=== PATIENT | male | born 1955 | race Caucasian/White ===

== ENCOUNTER 2018-04-14 11:03 | Inpatient (IN) | payer OTHER ==
[2018-04-14] VITALS (36 sets, daily range): BP systolic 117–176; BP diastolic 48–88
[~2018-04-14] VITALS: Ht 190.5 cm; Wt 84.0 kg
--- NOTE | 2018-04-14 11:05 | NUR ---
ARRIVAL PATIENT ARRIVED VIA POV WITH COMPLAINTS OF NAUEA, VOMITING AND WEAKNESS SINCE FRIDAY PATIENT REPORTS HISTORY OF KNOWN DIABETES BUT "DOES NOT CHECK HIS BLOOD SUGAR OR MEDICATION" BED SIDE GLUCOSE 535 20 GAUGE TO RIGHT AC 1L LR BOLUS INITIATED
[2018-04-14] MEDS ORDERED: LACTATED RINGERS 1,000 ML IV STA (11:30)
[2018-04-14] MEDS ORDERED: ZOFRAN IV STA (11:30)
[2018-04-14] MEDS ORDERED: LACTATED RINGERS 1,000 ML ONE (11:34)
[2018-04-14] MEDS ORDERED: ZOFRAN ONE (11:34)
--- NOTE | 2018-04-14 11:39 | PCM.EKG ---
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
[2018-04-14 11:46] LABS: ABG PCO2 11.4 mmHg (35.0-45.0); ABG PH 7.203 (7.350-7.450); BE(B) -20.1 mmol/L (-2.0-2.0); HCO3act 4.4 mmol/L (22.0-26.0); pO2 128.1 mmHg (75.0-100.0)
[2018-04-14 11:55] LABS: BASOPHIL % 0.2 % (0.0-0.2); HEMOGLOBIN 17.9 g/dL (13.9-16.3); LYMPHOCYTES # 2.4 10^3/uL (1.0-4.8); LYMPHOCYTES % 12.8 % (24.0-44.0); MEAN CELL HGB 30.4 pg (26-34); MEAN CELL HGB CONCENTRATION 35.7 g/dL (33-37); MEAN CORP VOLUME 85.1 fL (78-100); MEAN PLATELET VOLUME 10.3 fL (7.8-11.0); MONOCYTES # 1.7 10^3/uL (0.3-0.8); NEUTROPHIL # 14.5 10^3/uL (1.8-7.7); NEUTROPHILS % 76.9 % (41.0-85.0); RED CELL DISTRIBUTION WIDTH 12.4 % (11.5-14.5); WHITE BLOOD CELL 18.9 10^3/uL (4.5-11.0)
[2018-04-14] MEDS ORDERED: NS 1000ML 1,000 ML IV STA (11:55)
[2018-04-14] MEDS ORDERED: MORPHINE SULFATE ONE (12:05)
[2018-04-14 12:10] LABS: CALCIUM 7.9 mg/dL (8.4-10.5); CARBON DIOXIDE 7.4 mmol/L (20.0-32)
[2018-04-14] MEDS ORDERED: MORPHINE SULFATE IV STA (12:10)
[2018-04-14] MEDS ORDERED: HUMALOG MIX 75-25 VIAL SQ ONE (12:24)
[2018-04-14] MEDS ORDERED: KCL 20MEQ/100ML 100 ML IV ONE (12:26)
[2018-04-14] MEDS ORDERED: KCL 20MEQ/100ML 100 ML IV STA (12:27)
--- NOTE | 2018-04-14 12:32 | NUR ---
BLOOD GLUCOSE PT BLOOD GLUCOSE AT THIS TIME 588MG/DL. EDP NOTIFIED.
--- NOTE | 2018-04-14 12:45 | ER.PDOC ---
General Chief Complaint: Nausea,Vomiting,Diarrhea Stated Complaint: NAUSEA,VOMITING,WEAKNESS Time seen by MD: 12:41 Source: patient Exam Limitations: no limitations History of Present Illness Initial Comments Nausea/vomiting and abdominal pain for 6 days. Patient is a diabetic not taking his medication. Severity/Quality: moderate Abdominal Pain Onset Location: Generalized Abdomen Associated Symptoms (vomiting): freq vomitng Allergies: Coded Allergies: Penicillins (Verified Allergy, Mild, rash, 04/14/18) Vital Signs First Vital Signs Date Time Temp Pulse Resp B/P (MAP) Pulse Ox O2 Delivery O2 Flow Rate FiO2 04/14/18 11:28 97.8 96 18 97.8 04/14/18 11:28 98 Room Air 04/14/18 11:33 166/84 (111) Last Vital Signs Date Time Temp Pulse Resp B/P (MAP) Pulse Ox O2 Delivery O2 Flow Rate FiO2 04/14/18 11:33 97.8 96 18 166/84 (111) 98 Room Air 97.8 Past Medical History Medical History: diabetes Surgical History: no surgical history Social History Smoking: non-smoker Drug Use: none Constitutional: no symptoms reported EENTM: no symptoms reported Respiratory: no symptoms reported Cardiovascular: no symptoms reported Gastrointestinal: see HPI Genitourinary: no symptoms reported All Other Systems: Reviewed and Negative Physical Exam General Appearance: No Apparent Distress, WD/WN HEENT: PERRL/EOMI, Normal ENT Inspection, TMs Normal, Pharynx Normal Neck: Non-Tender, Full Range of Motion, Supple, Normal Inspection Respiratory: chest non-tender, lungs clear, normal breath sounds, no respiratory distress, no accessory muscle use Cardiovascular: Normal Peripheral Pulses, Regular Rate, Rhythm, No Edema, No Gallop, No JVD, No Murmur Gastrointestinal: Normal Bowel Sounds, No Organomegaly, Guarding, Tenderness ( generalized) Back: Normal Inspection, No CVA Tenderness, No Vertebral Tenderness Extremities: Normal Range of Motion, Non-Tender, Normal Inspection, No Pedal Edema, No Calf Tenderness, Normal Capillary Refill, Pelvis Stable 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 as 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, No Motor/Sensory Deficits, Alert, Normal Mood/Affect, Oriented x 3 Skin: Normal Color, Warm/Dry Results/Orders Results/Orders Laboratory Tests Test 04/14/18 11:35 04/14/18 11:48 Blood Gas Sample Site LEFT BRACHIAL ARTRY Blood Gas pH 7.203 (7.350-7.450) Blood Gas PCO2 11.4 mmHg (35.0-45.0) Blood Gas PO2 128.1 mmHg (75.0-100.0) Blood Gas HCO3 4.4 mmol/L (22.0-26.0) Blood Gas Base Excess -20.1 mmol/L (-2.0-2.0) Semaj Test N/A Arterial Blood Oxygen Saturation 97.9 % (95-) Deoxyhemoglobin 2.1 % (0.2-0.6) Carboxyhemoglobin 0.3 % (0.5-1.5) Methemoglobin 1.0 % (0.2-0.6) Total Hemoglobin 18.8 % (13.5-17.5) Total Oxygen Concentration 25.6 % (13.5-17.5) Lactic Acid (Blood Gas) 3.2 MMOL/L (0.5-1.0) Blood Gas Temperature 37 Oxygen Delivery Method (LAB) RA FiO2 21 % (20-101) Bicarbonate 4.7 mmol/L (23-27) White Blood Count 18.9 10^3/uL (4.5-11.0) Red Blood Count 5.89 10^6/uL (4.50-5.90) Hemoglobin 17.9 g/dL (13.9-16.3) Hematocrit 50.1 % (37.0-53.0) Mean Corpuscular Volume 85.1 fL (78-100) Mean Corpuscular Hemoglobin 30.4 pg (26-34) Mean Corpuscular Hemoglobin Concent 35.7 g/dL (33-37) Red Cell Distribution Width 12.4 % (11.5-14.5) Platelet Count 262 10^3/uL (150-400) Mean Platelet Volume 10.3 fL (7.8-11.0) Neutrophils (%) (Auto) 76.9 % (41.0-85.0) Lymphocytes (%) (Auto) 12.8 % (24.0-44.0) Monocytes (%) (Auto) 9.0 % (5.0-12.0) Neutrophils # (Auto) 14.5 10^3/uL (1.8-7.7) Lymphocytes # (Auto) 2.4 10^3/uL (1.0-4.8) Monocytes # (Auto) 1.7 10^3/uL (0.3-0.8) Absolute Immature Granulocyte (auto 0.20 10^3 u/L (0-2) Eosinophils % 0.0 % (0.0-5.0) Basophils % 0.2 % (0.0-0.2) Basophils # 0.0 10^3/uL (0.0-0.1) Eosinophil Count 0.0 10^3/uL (0.0-0.2) Prothrombin Time 12.1 SEC (9.8-11.9) Prothrombin Time INR (Non-Therap) 1.2 Activated Partial Thromboplast Time 25.6 SEC (24.67-30.72) Sodium Level 123 mmol/L (132-145) Potassium Level 3.2 mmol/L (3.6-5.2) Chloride Level 82.0 mmol/L (96-109) Carbon Dioxide Level 7.4 mmol/L (20.0-32) Anion Gap 36.8 Blood Urea Nitrogen 60 mg/dL (7-18) Creatinine 1.87 mg/dL (0.59-1.40) Estimated GFR () 44.5 (>/=60) BUN/Creatinine Ratio 32.0 Glucose Level 540 mg/dL (70-110) Calcium Level 7.9 mg/dL (8.4-10.5) Total Bilirubin 1.4 mg/dL (0.2-1.0) Aspartate Amino Transf (AST/SGOT) 14 U/L (0-35) Alanine Aminotransferase (ALT/SGPT) 29 U/L (12-78) Alkaline Phosphatase 117 U/L (50-136) Total Protein 7.1 g/dL (6.4-8.2) Albumin 3.4 g/dL (3.4-5.0) Globulin 3.7 Lipase 148 U/L (114-286) Percent Immature Gran (Cell Imm) 1.10 % (0.00-0.50) Helicobacter pylori Screen NEGATIVE (NEGATIVE) Administered Medications Medications (Trade) Dose Ordered Sig/Vitaly Route PRN Reason Start Time Stop Time Status Last Admin Dose Admin Ondansetron HCl (Zofran) 4 mg STAT STAT IV 04/14/18 11:30 04/14/18 11:33 DC 04/14/18 12:10 Morphine Sulfate (Morphine Sulfate) 4 mg STAT STAT IV 04/14/18 12:10 04/14/18 12:11 DC 04/14/18 13:21 Potassium Chloride 100 ml @ 50 mls/hr STAT STAT IV 04/14/18 12:27 04/14/18 14:26 UNV 04/14/18 13:21 EKG/XRAY/CT/US CT Comments: Nothing acute on CT abdomen/pelvis, chronic pancreatitis Departure Time of Disposition: 13:35 Disposition: 01 HOME, SELF-CARE Impression: Primary Impression: DKA (diabetic ketoacidoses) Qualified Codes: E13.10 - Other specified diabetes mellitus with ketoacidosis without coma Condition: Stable Referrals: PCP,UNKNOWN (PCP) PRIMARY CARE PROVIDER Comments Admitted to Dr. Vanegas Duration or Time Spent with Pa: 90 mins Critical Care Note Total Time (mins): 90 SALEEM WEST MD Apr 14, 2018 12:45
--- NOTE | 2018-04-14 12:49 | DIREP ---
PROCEDURE:CT ABDOMEN/PELVIS W/O CONTRAST COMPARISON:None. INDICATIONS:Abdominal pain TECHNIQUE: Axial images were obtained through the abdomen and pelvis without the administration of IV contrast. Oral contrast was not administered. The examination is supplemented with sagittal and coronal reconstructions. FINDINGS: LOWER CHEST: The lung bases appear clear of focal consolidation. No evidence of pleural effusion. LIVER: A focal lesion is not detected. BILIARY: No visible dilatation or calcification. PANCREAS: No focal lesion. Atrophy. Dystrophic calcifications. SPLEEN: No enlargement. No focal lesion. KIDNEYS: No mass. No calcification. No obstruction. ADRENALS: No mass or enlargement. AORTA/VASCULAR: No aneurysm or dissection. RETROPERITONEUM: No mass or adenopathy. BOWEL/MESENTERY: Limitations due to unopacified bowel. The wall of the duodenum and proximal jejunum is thickened. Stomach is distended. Associated mesenteric inflammatory changes. There is no free air or free fluid. ABDOMINAL WALL: No mass or hernia. PELVIS: No visible mass. No adenopathy. No visible focal bladder wall thickening or intraluminal calculus. BONES: No bony lesion or acute fracture. Degenerative disc changes. OTHER: Negative. CONCLUSION: 1. Chronic pancreatitis changes. 2. The wall of the duodenum and proximal jejunum is thickened. Stomach is distended. Associated mesenteric inflammatory changes. Dictated by: Zhang Lyon M.D. On 04/14/2018 at 12:40 PM
--- NOTE | 2018-04-14 13:05 | NUR ---
LYSSA ROBLES MBA CALLED DR OMALLEY AT THIS TIME. NO ANSWER. MESSAGE LEFT FOR DR OMALLEY TO RETURN CALL.
--- NOTE | 2018-04-14 13:31 | NUR ---
DR LYSSA ROBLES MBA ON PHONE WITH DR OMALLEY
[2018-04-14] MEDS ORDERED: COMPAZINE IV STA (13:36)
--- NOTE | 2018-04-14 13:39 | PRM.ACF1 ---
Date and Time Date and Time Time: 13:38 Admission Criteria Forms DIABETES Clinical Indications for Admission to Inpatient Care (lyt[place]/check the applicable condition/criteria) Admission is indicated by 1 or more of the following (1)(2)(3)(4)(5)(9): [x ] I . Diabetic ketoacidosis as indicated by ALL the following [ ] i. Hyperglycemia (eg, plasma glucose greater than 200 mg/dL (11.1 mmol/L) ) [ ] ii. Acidosis (eg, arterial or venous pH less than 7.30, serum bicarbonate level less than 15 mEq/L (mmol/L)) [A] [ ] iii. Moderate ketonuria or ketonemia [ ] II. Hyperglycemic hyperosmolar state as indicated by ALL of the following [ ] i. Plasma glucose greater than 600 mg/dL (33.3 mmol/L) [ ] ii. Serum osmolality greater than 320 mOsm/kg (mmol/kg) [ ] iii. Neurologic dysfunction (eg, stupor, coma, hemiparesis, seizure) (14) [ ] III. Hyperglycemia requiring inpatient care as indicated by 1 or more of the following: [ ] i. Altered mental status indicated by 1 or more of the following(1)(2)(3) (4): [ ] a. Confusional state (eg,disorientation,difficultyfollowing commands,deficit in attention) [ ] b. Lethargy (awake or arousable,but with drowsiness; reduced awareness of self and environment) [ ] c. Obtundation(ie,arousable with strong stimuli,lessened interestin environment, slowed responses to stimulation) [ ] d. Stupor (may be arousable but patient does not return to normal baseline level of awareness) [ ] e. Coma (not arousable) [ ] ii. Dehydration that is severe or persistent as indicated by 1 or more of the following(1)(2)(3)(4): [ ] a. Clinical findings of severe dehydration as indicated by 1 or more of the following: [ ] 1. Acute loss of weight from baseline (5% of body weight in adults, 9% in pediatric patients) [ ] 2. Hemodynamic instability indicated by 1 or more of the following(1)(2)(3)(4)(5)(6)(7): [ ] a. Vital sign abnormality not readily corrected by appropriate treatment within 12 to 24 hours indicated by 1 or more of the following: [ ] i. Tachycardia as indicated by 1 or more of the following(1)( 2): [ ] 1. Heart rate greater than 100 beats per minute in adult or child age 6 years or older [ ] 2. Heart rate greater than 115 beats per minute in child 3 to 5 years of age [ ] 3. Heart rate greater than 125 beats per minute in child 1 or 2 years of age [ ] 4. Heart rate greater than 130 beats per minute in 6 to 11 months of age [ ] 5. Heart rate greater than 150 beats per minute in 3 to 5 months of age [ ] 6. Heart rate greater than 160 beats per minute in 1 or 2 months of age [ ] ii. Hypotension as indicated by ALL of the following (1)(2)(3) (4): [ ] A. Not patient baseline (eg, healthy adult with low SBP) or intentional therapeutic goal (eg, low SBP as treatment goal in heart failure) [ ] B. Low blood pressure as indicated by 1 or more of the following: [ ] 1. New onset of SBP less than 90 mm Hg in adult or child 10 years or older [ ] 2. New decrease in SBP greater than 40 mm Hg in adult or child 10 years or older [ ] 3. Mean arterial pressure[A] less than 70 mm Hg in adult or child 10 years or older [ ] 4. New onset of SBP less than sum of 70 mm Hg plus twice patient's age in years in child1 to 9 years of age [ ] 5. New onset of SBP less than 70 mm Hg in 1 to 11 months of age [ ] iii. Orthostatic vital sign changes as indicated by 1 or more of the following (1): [ ] A. Fall in SBP of 20 mm Hg or more 1 to 3 minutes after patient sits or stands from recumbent position [ ] B. Fall in DBP of 10 mm Hg or more 1 to 3 minutes after patient sits or stands from recumbent position [ ] b. Vital sign abnormality that is severe indicated by 1 or more of the following: [ ] i. Inadequate perfusion indicated by 1 or more of the following [ ] A. Lactic acidosis, with lactic acid greater than 18 mg/dL (2 mmol/L) or base excess <-5mEq/L [ ] B.New abnormal capillary refill (longer than 3 seconds) [ ] C. Other metabolic acidosis (arterial pH < 7.35) not otherwise explanied [ ] D. Myocardial ischemia [ ] E. Altered mental status indicated by 1 or more of the following(1)(2)(3)(4): [ ] 1. Confusional state (eg,disorientation, difficultyfollowing commands,deficit in attention) [ ] 2. Lethargy (awake or arousable,but with drowsiness;reduced awareness of self and environment) [ ] 3. Obtundation(ie,arousable with strong stimuli,lessened interest in environment, slowed responses to stimulation) [ ] 4. Stupor (may be arousable but patient does not return to normal baseline level of awareness) [ ] 5.Coma (not arousable) [ ] F. Reduced urine output as indicated by 1 or more of the following(1)(2): [ ] 1. Urine output less than 0.5 mL/kg/hour for 6 hours in adult [ ] 2. Anuria (urine output less than 0.1 mL/kg/ hour) for 4 hours in any age group [ ] 3. Reduced output in child as indicated by 1 or more of the following (3): [ ] i. Urine output less than 2 mL/kg/hour for 6 hours in infant younger than 2 years [ ] ii. Urine output less than 1 mL/kg/hour for 6 hours in child younger than 12 years [ ] iii. Urine output less than 0.75 mL/kg/ hour for 6 hours in adolescent younger than 18 years [ ] ii. Mean arterial pressure[A] less than 60 mm Hg [ ] iii. Mean arterial pressure[A] less than 70 mm Hg after 30 minutes of appropriate treatment (eg, fluid resuscitation) [ ] iv. IV inotropic or vasopressor medication required to maintain adequate blood pressure [ ] v. Sustained heart rate greater than 120 beats per minute in adult or child 6 years or older [ ] 3. Acute renal failure as indicated by new onset of 1 or more of the following(1)(2)(3)(4)(5)(6)(7): [ ] a. 3-fold rise in serum creatinine from baseline [ ] b. Serum creatinine greater than 4 mg/dL(354 micromoles /L)with acute rise greater than 0.5 mg/dL (44.2 micromoles/L) [ ] c. Reduction of more than 75% in estimated glomerular filtration rate from baseline. [ ] d. Estimated glomerular filtration rate less than 35 mL/min/1.73m2 (0.59 mL/sec/1.73m2) in child younger than 18 years. [ ] e. Cessation of urine output indicated by ALL of the following: [ ] A. Adequate volume status [ ] B. Inadequate urine output as indicated by 1 or more of the following: [ ] i. Urine output less than 0.3 mL/kg/hour for 24 hours [ ] ii. Anuria (urine output less than 0.1 mL/ kg/hour) for 12 hours [ ] 4. Serum sodium greater than 150 mEq/L (mmol/L) [ ] b. Dehydration that is persistent as indicated by ALL of the following: [ ] 1. Oral rehydration therapy not tolerated or insufficient to adequately correct dehydration [ ] 2. Appropriate intravenous treatment (eg, fluids) does not readily correct dehydration (ie, after 12 to 24 hours of treatment) [ ] iii . Vomiting that is severe or persistent indicated by 1 or more of the following(1)(2)(3)(4)(5)(6)(7)(8): [ ] a. Numerous episodes of vomiting in past 24 hours (eg, every 1 to 2 hours) [ ] b. Pattern or content of vomitus suggests severe underlying cause or complication (eg,projectile, feculent, bilious, coffee ground, bloody) [ ] c. Appropriate antiemetic treatment (eg,repeated oral or parenteral dosing) doesnot sufficiently reduce vomiting within 12 to 24 hours of treatment [ ] d. Treatment regimen necessary to adequately control vomiting requiresinpatient level of care(eg, not immediately available in outpatient setting) [ ] iv. Unexplained fever or severe infection [ ] v. Significant electrolyte abnormality (e.g., hypokalemia, hyperkalemia, hypernatremia) not responsive to outpatient and observation care treatment Extended stay beyond goal length of stay may be needed for (3) (20) [ ] I. Treatment of precipitating causes (2) [ ] i. Infection,sepsis,stroke, alchol abuse, illicit drug use, pancreatitis ,trauma, and [place] may precipitate diabetic decompensation. [ ] II . Development of significant hypoglycemia (22) [ ] i. Anticipate adjustment of insulin therapy [ ] III. Complications of treatment (24) [ ] i. Cerebral edema,vascular thrombosis, hypoxemia,non cardiogenic pulmonary edema,and other complications may occur in the course of treatment. [ ] IV. Complications of decompensated diabetes (e.g., acute gastric dilatation , persistent metabolic or neurologic derangement) (25) [ ] i. Less rapid resolution may require inpatient care [ ] V. Active Comorbidities [ ] i. Renal failure(26) [ ] ii. Heart failure(27) [ ] iii.Myocardial ischemia(28) [ ] iv. Chronic liver disease [ ] v. Neuropathic or vascular ulcers of lower extremities(30) [ ] vi. Severe peripheral vascular disease [ ] . Older patients [ ] i. Patients 65 years or older may require longer acute hospital care. The original [facility] [employer] content created by [employer] has been revised. The portions of the content which have been revised are identified through the use of italic text,and [employer] has neither reviewed nor approved the modified material. All other unmodified content is copyright [employer]. Please see references footnoted in the original [facility] [employer] edition 2017 SALEEM WEST MD Apr 14, 2018 13:39
--- NOTE | 2018-04-14 13:55 | NUR ---
DR LYSSA ZURITAA ON PHONE WITH DR OMALLEY IN REGARDS TO PT BEING IN M/S VS ICU. PER DR OMALLEY, HOPD PT IN THE ED UNTIL HE CAN COME SEE PT
--- NOTE | 2018-04-14 13:59 | NUR ---
DR LYSSA OMALLEY AT PT BEDSIDE AT THIS TIME
[2018-04-14 14:38] LABS: SEGMENTED NEUTROPHILS 78 % (31-76)
[2018-04-14 14:39] LABS: BASOPHIL 1 % (0-2); DIFFERENTIAL COMMENT NORMAL; LYMPHOCYTE 11 % (25-36); MONOCYTE 10 % (3-9)
[2018-04-14] MEDS ORDERED: NS IV ONE (15:14)
[2018-04-14] MEDS ORDERED: NOVOLIN R ONE (15:14)
--- NOTE | 2018-04-14 15:18 | NUR ---
DR. OMALLEY NOTIFIED OF PATIENT'S ARRIVAL AND BLOOD SUGAR OF 480. NEW ORDERS GIVEN: MAY TITRATE INSULIN DOWN, BUT DO NOT GO BELOW 2 UNITS/HER ON INSULIN DRIP. NOTIFY DR. OMALLEY IF BLOOD SUGAR DROPS BELOW 200, BUT NOT NECESSARY TO NOTIFY IF BLOOD SUGAR OVER 400. RBTO.
[2018-04-14] MEDS ORDERED: NS IV SCH (15:30)
[2018-04-14] MEDS ORDERED: TYLENOL PO PRN (15:30)
--- NOTE | 2018-04-14 16:00 | NUR ---
BOLUS 346ML NS BOLUS GIVEN IN ADDITION TO 2L BOLUS GIVEN BY ED TO COMPLETE TOTAL BOLUS OF 2346ML.
[2018-04-14] MEDS: NS 1000ML 1,000 ML IV SCH ×2 (16:06→20:00)
[2018-04-14 16:30] LABS: CALCIUM 7.1 mg/dL (8.4-10.5); CARBON DIOXIDE 7.8 mmol/L (20.0-32)
[2018-04-14 17:55] LABS: BILIRUBIN,URINE NEGATIVE (NEGATIVE); UROBILINOGEN,URINE NORMAL (NEGATIVE)
[2018-04-14 18:03] LABS: APPEARANCE,URINE CLEAR (CLEAR); UA COLOR YELLOW (YELLOW)
[2018-04-14 21:21] LABS: CARBON DIOXIDE 13.9 mmol/L (20.0-32)
[2018-04-14] MEDS: ZOFRAN IV PRN (22:28)
[2018-04-15] VITALS (65 sets, daily range): BP systolic 95–157; BP diastolic 41–73
[2018-04-15 01:21] LABS: CALCIUM 7.1 mg/dL (8.4-10.5); CARBON DIOXIDE 16.6 mmol/L (20.0-32)
[2018-04-15] MEDS: NS 1000ML 1,000 ML IV SCH (04:47)
[2018-04-15 05:25] LABS: BASOPHIL % 0.1 % (0.0-0.2); EOSINOPHIL % 0.2 % (0.0-5.0); HEMOGLOBIN 15.1 g/dL (13.9-16.3); LYMPHOCYTES # 2.2 10^3/uL (1.0-4.8); LYMPHOCYTES % 16.4 % (24.0-44.0); MEAN CELL HGB 30.4 pg (26-34); MEAN CELL HGB CONCENTRATION 37.5 g/dL (33-37); MEAN CORP VOLUME 81.3 fL (78-100); MEAN PLATELET VOLUME 9.9 fL (7.8-11.0); MONOCYTES # 1.4 10^3/uL (0.3-0.8); MONOCYTES % 10.9 % (5.0-12.0); NEUTROPHIL # 9.4 10^3/uL (1.8-7.7); NEUTROPHILS % 71.8 % (41.0-85.0); RED CELL DISTRIBUTION WIDTH 12.2 % (11.5-14.5); WHITE BLOOD CELL 13.1 10^3/uL (4.5-11.0)
[2018-04-15 05:37] LABS: CALCIUM 7.2 mg/dL (8.4-10.5); CARBON DIOXIDE 14.5 mmol/L (20.0-32)
--- NOTE | 2018-04-15 06:19 | NUR ---
DR. OMALLEY NOTIFIED OF PATIENT AM LAB RESULTS. AWAITING FURTHER ORDERS.
[2018-04-15] MEDS ORDERED: D5W-1/2 NS/KCL 20MEQ 1,000 ML ONE (07:08)
[2018-04-15] MEDS: D5W-1/2NS/KCL 40MEQ 1,000 ML IV SCH ×3 (07:13→23:30)
--- NOTE | 2018-04-15 07:20 | NUR ---
Dr. Guilherme Vanegas at bedside. New orders received.
[2018-04-15] MEDS: REGLAN IV PRN ×2 (07:59→14:59)
--- NOTE | 2018-04-15 09:25 | NUR ---
Insulin drip Insulin drip titrated to 3units/hr per Dr. Vanegas order for blood sugar of 242.
--- NOTE | 2018-04-15 09:45 | NUR ---
DISCHARGE PLAN CM VISITED WITH PATIENT REGARDING DISCHARGE PLAN AND NEEDS. PATIENT LIVES AT HOME ALONE. HE IS ACTIVE AND INDEPENDENT. HE DOES NOT REQUIRE ANY DME OR HOME OXYGEN. [facility] IS WORKING WITH PATIENT DUE TO NO INSURANCE. DISCHARGE GOAL IS TO DISCHARGE HOME WITH ROUTINE SELF CARE. CM DEPT WILL CONTINUE TO MONITOR DISCHARGE NEEDS.
[2018-04-15 10:34] LABS: CALCIUM 7.2 mg/dL (8.4-10.5); CARBON DIOXIDE 15.2 mmol/L (20.0-32)
--- NOTE | 2018-04-15 11:09 | HPH ---
ADMIT DATE: 04/14/2018 CHIEF COMPLAINT: Nausea, vomiting, diarrhea. HISTORY OF PRESENT ILLNESS: The patient is a 62-year-old man with past medical history significant for diabetes mellitus type 2 with poor medical compliance taking no medications at this time. He has had a history of diabetes, has been very poorly controlled. He does not take any more medication. He did take insulin and metformin in the past. For some reason, he decided he did not want to take any medications. He presented to ER with nausea, vomiting and some diarrhea. The symptoms started approximately for the last 6 days. Increasingly he has been unable to tolerate oral intake. Workup in ER did reveal he was in diabetic ketoacidosis. PAST MEDICAL HISTORY: Includes uncontrolled diabetes mellitus type 2, past history of tobacco use. PAST SURGICAL HISTORY: Denies any surgeries. ALLERGIES: Allergic to PENICILLIN. HOME MEDICATIONS: Does not take any routine home medications. SOCIAL HISTORY: Lives at home. Distant history of tobacco use. Denies any illicit drug use, alcohol use. FAMILY HISTORY: Negative for early coronary artery disease or diabetes. REVIEW OF SYSTEMS: CARDIAC: Denies chest pain or shortness of breath. PULMONARY: No cough, sputum production or pleuritic chest pain. GASTROINTESTINAL: Positive for nausea, vomiting and diarrhea. All else negative in 10 point review of system except as in HPI. PHYSICAL EXAMINATION: VITAL SIGNS: Upon arrival, height 190.5 cm, weight 78.2 kilograms, temperature 97.8, pulse 96, respiratory rate 18, blood pressure 166/84, O2 saturation 98% on room air. GENERAL: He is alert, chronically ill-appearing gentleman. HEENT: Pupils equal, round, reactive to light. Sclerae are anicteric. Oropharynx is clear. Mucous membranes are slightly dry. NECK: Supple, no lymphadenopathy. CARDIOVASCULAR: At time of exam was slightly tachycardic, regular rhythm. LUNGS: Clear bilaterally. No wheezing. ABDOMEN: Soft. Bowel sounds are present, nontender to palpation. EXTREMITIES: No cyanosis, clubbing or significant edema. NEUROLOGIC: Grossly nonfocal. LABORATORY DATA: CBC: White count 18.9, hemoglobin 15.9, platelets 262. Differential: 78% neutrophils, 11% lymphocytes, 10% monocytes. Sodium 123, potassium 3.2, chloride 82, CO2 7.4, BUN 60, creatinine 1.87, glucose is 540, calcium 7.9, total bilirubin is 1.4, AST 14, ALT 29, alkaline phosphatase 117, total protein 7.1, albumin 3.4, lipase 148. Initial blood gas pH is 7.20, pCO2 is 11.4, pO2 is 128.1, base excess negative 20.1 with a lactate of 3.2. UA, pH is 5.0, specific gravity 1.020, all else is essentially negative except for glucose in urine. IMAGING STUDIES: Abdomen and pelvis CT performed in the emergency room shows chronic pancreatic changes consistent with probably chronic pancreatitis. ASSESSMENT AND PLAN: The patient is a 62-year-old man here with diabetic ketoacidosis, uncontrolled hypertension, poor medical compliance with diabetes mellitus type 2. 1. We will continue insulin drip, IV fluids replacement, titrate as indicated as the gap closes. 2. Appropriate p.r.n. pain and nausea medications. 3. DVT prophylaxis will be with Lovenox. He does have acute renal failure secondary to the diabetic ketoacidosis with significant dehydration. We will follow clinically. Time spent on 04/14/2018 is 60 minutes. This plan was discussed with the patient. He is his own decision maker. He does understand and concur with plans. Jeffrey Vanegas MD DR: MIKE/gustavo JOB# [id number]
[2018-04-15] MEDS ORDERED: HUMULIN R 100 UNIT in NS 100ML 100 ML SQ ONE (11:30)
[2018-04-15] MEDS: ZOFRAN IV PRN ×2 (11:38→17:48)
[2018-04-15 15:46] LABS: CALCIUM 7.3 mg/dL (8.4-10.5); CARBON DIOXIDE 14.5 mmol/L (20.0-32)
--- NOTE | 2018-04-15 17:17 | NUR ---
Mobility level Patient mobility level B. Patient declined to sit up in chair for any meals throughout this shift stating he was too tired and nauseous. Educated patient on importance of early mobility while in hospital, pt verbalized understanding but declined. Will reevaluate tomorrow.
--- NOTE | 2018-04-15 17:50 | NUR ---
Dr. Vanegas Patient stating Zofran and Reglan are not working, attempted to notify Dr. Vanegas. Message left. Awaiting response.
--- NOTE | 2018-04-15 18:00 | NUR ---
Dr. Guilherme Vanegas on phone. Dr. Vanegas notified of patient's lab values. New order received to order BMP at 2100 and schedule Reglan 10mg IV q6hr scheduled. RBTO.
--- NOTE | 2018-04-15 21:00 | NUR ---
Patient is activity level B.
--- NOTE | 2018-04-15 21:06 | NUR ---
Incoming call from Dr. Vanegas. Reported last 2 blood sugars. New order for NS bolus x1L now.
[2018-04-15] MEDS: REGLAN IV SCH (21:18)
[2018-04-15] MEDS ORDERED: NS 1000ML 1,000 ML IV ONE (21:30)
[2018-04-15 21:34] LABS: CALCIUM 6.9 mg/dL (8.4-10.5); CARBON DIOXIDE 16.1 mmol/L (20.0-32)
[2018-04-16] VITALS (24 sets, daily range): BP systolic 105–148; BP diastolic 44–77
[2018-04-16] MEDS: REGLAN IV SCH ×3 (04:24→17:07)
--- NOTE | 2018-04-16 05:40 | NUR ---
Incoming call from Dr. Vanegas. New order for BMP and CBC.
--- NOTE | 2018-04-16 06:00 | NUR ---
Lab at the bedside.
[2018-04-16 06:06] LABS: EOSINOPHIL % 0.1 % (0.0-5.0); LYMPHOCYTES # 0.9 10^3/uL (1.0-4.8); LYMPHOCYTES % 10.3 % (24.0-44.0); MEAN CELL HGB CONCENTRATION 37.8 g/dL (33-37); MEAN CORP VOLUME 81.9 fL (78-100); MEAN PLATELET VOLUME 9.6 fL (7.8-11.0); MONOCYTES # 1.5 10^3/uL (0.3-0.8); MONOCYTES % 17.5 % (5.0-12.0); NEUTROPHILS % 71.5 % (41.0-85.0); NUCLEATED RED BLOOD CELLS 0 % (0-0); PLATELET COUNT 159 10^3/uL (150-400); RED CELL DISTRIBUTION WIDTH 12.3 % (11.5-14.5); WHITE BLOOD CELL 8.3 10^3/uL (4.5-11.0)
[2018-04-16 06:16] LABS: CALCIUM 6.8 mg/dL (8.4-10.5); CARBON DIOXIDE 19.4 mmol/L (20.0-32)
[2018-04-16 06:28] LABS: BASOPHIL 1 % (0-2); LYMPHOCYTE 16 % (25-36); MONOCYTE 12 % (3-9); SEGMENTED NEUTROPHILS 71 % (31-76)
--- NOTE | 2018-04-16 07:05 | NUR ---
Dr. Guilherme Vanegas on phone. Notified of patient's recent lab results. New orders received to administer 10 units NPH insulin sq x1 and to turn off Insulin drip and [id number] one hour after insulin administration. RBTO.
[2018-04-16] MEDS ORDERED: HUMULIN N SQ ONE ×3 (07:10→08:00)
[2018-04-16] MEDS ORDERED: HUMULIN SQ ONE (07:30)
[2018-04-16] MEDS: D5W-1/2NS/KCL 40MEQ 1,000 ML IV SCH (07:30)
--- NOTE | 2018-04-16 07:52 | NUR ---
Dr. Guilherme Vanegas at bedside. New orders received.
--- NOTE | 2018-04-16 07:58 | NUR ---
Insulin drip Insulin drip turned off at this time.
[2018-04-16] MEDS: HUMALOG SQ SCH ×3 (08:00→17:32)
[2018-04-16] MEDS ORDERED: DEXTROSE 50%-WATER SYRINGE IV PRN (08:00)
--- NOTE | 2018-04-16 08:18 | NUR ---
Mobility level Patient mobility level B. Patient sat up to side of bed for breakfast. Educated pt on the importance of increased activity, pt verbalized understanding but reinforcement is needed.
[2018-04-16] MEDS: NS 1000ML 1,000 ML IV SCH ×3 (08:23→18:56)
--- NOTE | 2018-04-16 08:35 | NUR ---
Status Patient sitting up in chair. Linens changed. Patient performed own venkata care and under arm care.
[2018-04-16] MEDS ORDERED: REGLAN IV SCH (10:00)
[2018-04-16 12:03] LABS: CALCIUM 6.8 mg/dL (8.4-10.5); CARBON DIOXIDE 16.3 mmol/L (20.0-32)
--- NOTE | 2018-04-16 12:55 | DIET.OP ---
Nutrition Asmt/Malnutrit 2-17 Nutritional Screening: Malnutr/Diet Consult Diagnosis: DKA Pertinent Medical Hx/Surgical: Uncontrolled DM type 2, tobacco use Subjective Information: Spoke with pt who reported he did not have much of an appetite right now due to nausea. Pt reported that he had consumed some applesauce and milk for breakfast, but that he had to force himself to eat that much. Pt appeared to be in some discomfort while speaking to him. Gave pt a breif education on DM management. Will give a more in depth education on DM management and consistent CHO diet before discharge. Pt is currently on an 1800 ADA diet. Pt reported a recent wt of 180 prior to hospital admission. Pt is not controlling his DM with diet or medication at home. Discussed with pt that it is important to control BG levels with diet and medication in order to keep BG levels WNL at home. Pt complained of some discomfort when drinking liquids laying down. Explained the reason behind his discomfort. Pt expressed understanding to diet education. Pertinent Meds Current Medications Medications (Trade) Dose Ordered Sig/Vitaly PRN Reason Start Time Stop Time Status Last Admin Acetaminophen (Tylenol) 1,000 mg Q6H PRN PAIN MILD 04/14/18 15:30 05/14/18 15:29 Dextrose (Dextrose 50%-Water Syringe) 25 ml STAT PRN HYPOGLYCEMIA 04/16/18 08:00 05/16/18 07:59 Insulin Human Lispro (Humalog) Humalog. Give when food is... TIDM 04/16/18 08:00 05/16/18 07:59 04/16/18 12:11 Metoclopramide HCl (Reglan) 10 mg Q6 04/16/18 10:00 05/16/18 09:59 04/16/18 10:38 Ondansetron HCl (Zofran) 4 mg Q4H PRN NAUSEA / VOMITING 04/14/18 15:30 05/14/18 15:29 04/15/18 17:48 Sodium Chloride 1,000 ml @ 125 mls/hr Q8H 04/16/18 08:30 05/16/18 08:29 04/16/18 08:23 Pertinent Labs Glu (04/14) 540, 405, 263 (04/15) 249, 214, 255, 280, 272, Urine ketones: 150 mg/dL Height (Feet): 6 Height (Inches): 3 Current Weight: 172 Usual Weight: 180 %UBW: 96 %IBW: 88 Recent Weight Change: Yes Weight Status: Underweight GI Symptoms: Nausua Current %PO: Can't Poor(25-49%) BEE in Kcals: Use Current Weight (IBW) Calories/Kcals/Kg: MsJ *1.2-1.3 Kcals Calculated: 5620-5305 Protein: Use Current Weight (IBW) Protein g/k-20% of 2500 kcal Protein Calculated: 93-125 Fluid: ml: 1 ml/kcal Nutritional Problem: Nutr. Problems Present Problems: Food and nutrition related knowledge defecit Etiology: DM type 2 Signs/Symptoms: DKA, BG levels 540, 405, 263 (04/14) 249,214,255,280,272 (04/15); pt report of no DM meds used at home, pt reported not following consistent CHO diet. Interpretation of Weight Loss: 1-2% in 1 week Body Fat Depletion (Non Severe: Mild Depletion Muscle Mass (Non-Severe): Mild Depletion (Mod) Protein-Calorie Malnutrition: Non-Severe Is there a minimum of two crit: Yes RD Comments: Recommend: Pt be put on 2400 ADA diet. Pt needs further DM diet and medication education. Continue to monitor pt's PO intake, BG levels, and wt for any significant changes. Expected Outcomes Goal: Pt will gain a better understanding of a consistent CHO diet for at home use. Pt's BG levels will be 140-180 mg/dL over the next 2-[address] Apr 16, 2018 12:55
[2018-04-16] MEDS ORDERED: NS 1000ML 1,000 ML IV ONE (13:00)
[2018-04-16 15:24] LABS: CARBON DIOXIDE 18.5 mmol/L (20.0-32)
[2018-04-16 15:25] LABS: CALCIUM 6.9 mg/dL (8.4-10.5)
--- NOTE | 2018-04-16 15:50 | NUR ---
Dr. Guilherme Vanegas notified of patient's potassium of 2.8. New order received for Potassium 40meq po x1. RBTO.
[2018-04-16] MEDS ORDERED: KLOR-CON 10 PO STA (15:52)
[2018-04-16] MEDS: ZOFRAN IV PRN (17:33)
--- NOTE | 2018-04-16 20:27 | NUR ---
Rcvd report and assumed care @1900. Pt awake and alert with visitor at bedside. cardiac and O2 monitors in place parameters assessed. call light in reach, education provided to call for assist prior to being out of bed. Voiced understanding.
[2018-04-17] VITALS (36 sets, daily range): BP systolic 102–152; BP diastolic 39–78
[2018-04-17] MEDS: REGLAN IV SCH ×4 (00:01→17:24)
[2018-04-17] MEDS: NS 1000ML 1,000 ML IV SCH ×2 (02:34→16:30)
--- NOTE | 2018-04-17 03:53 | NUR ---
Gastric Reflux Pt c/o gastric reflux and that if he lays flat he can feel it come up through his nose. HOB is elevated approc 30 degrees. Medications have been given as ordered. Encouraged pt to discuss with MD during rounds and teletypewriter installer will report to next shift as well.
--- NOTE | 2018-04-17 03:57 | PNH ---
DATE: 04/15/2018 SUBJECTIVE: He is still having some nausea and some dry heaves. No other acute events overnight. His bicarbonate remained low. OBJECTIVE: VITAL SIGNS: T-max last 24 hours is 98.9, pulse 84, respiratory rate 26, blood pressure 127/63, O2 saturation 98% on room air. GENERAL: He is alert, in no acute distress at time of exam. HEENT: Pupils equal, round, reactive to light. Sclerae are anicteric. Oropharynx is clear. Mucous membranes are slightly dry. NECK: Supple, no lymphadenopathy. CARDIOVASCULAR: At time of exam is regular rate and rhythm. LUNGS: Clear bilaterally. No wheezing. ABDOMEN: Soft. Bowel sounds are present, nontender to palpation. EXTREMITIES: No cyanosis, clubbing or significant edema. NEUROLOGIC: Grossly nonfocal. LABORATORY DATA: CBC: White count is 13.1, hemoglobin 15.1 and platelets 199. Differential: 72% neutrophils, 16% lymphocytes, 11% monocytes. Sodium is 129, potassium 3.2, chloride 97, CO2 is 14.5, BUN 24, creatinine 1.08, glucose 280, calcium 7.3. ASSESSMENT AND PLAN: The patient is a 62-year-old man here with diabetic ketoacidosis likely secondary to diabetic medication noncompliance and noncompliance with ADA diet. 1. Continue insulin drip and IV fluids. 2. Ice chips and sips of water okay. 3. Appropriate p.r.n. pain and nausea medication. Time spent on 04/15/2018 is 25 minutes. Jeffrey Vanegas MD DR: MIKE/gustavo JOB# [id number] DARIEN
[2018-04-17 05:15] LABS: BASOPHIL % 0.1 % (0.0-0.2); EOSINOPHIL % 0.1 % (0.0-5.0); HEMOGLOBIN 14.3 g/dL (13.9-16.3); LYMPHOCYTES % 10.1 % (24.0-44.0); MEAN CELL HGB CONCENTRATION 37.3 g/dL (33-37); MEAN CORP VOLUME 82.9 fL (78-100); MEAN PLATELET VOLUME 9.7 fL (7.8-11.0); MONOCYTES # 1.4 10^3/uL (0.3-0.8); MONOCYTES % 14.5 % (5.0-12.0); NEUTROPHILS % 74.5 % (41.0-85.0); RED CELL DISTRIBUTION WIDTH 12.7 % (11.5-14.5); WHITE BLOOD CELL 9.4 10^3/uL (4.5-11.0)
--- NOTE | 2018-04-17 05:25 | NUR ---
LAB lab in for blood draw. pt weight obtained.
[2018-04-17 05:27] LABS: CALCIUM 6.5 mg/dL (8.4-10.5); CARBON DIOXIDE 12.6 mmol/L (20.0-32)
[2018-04-17] MEDS ORDERED: NS 1000ML 1,000 ML IV ONE ×8 (06:30→22:00)
--- NOTE | 2018-04-17 06:31 | NUR ---
abnormal lab Reported WBG, CO2, and k+, to Dr. Vanegas. New orders r'cvd and implemented.
--- NOTE | 2018-04-17 07:05 | NUR ---
Dr. Guilherme Vanegas at bedside. New order received for patient to be NPO for possible egd and colonoscopy if needed. Dr. Vanegas aware of need for 2 units per sliding scale for blood sugar of 192. New order received to hold insulin while NPO. RBVO.
[2018-04-17] MEDS: HUMALOG SQ SCH ×3 (07:17→17:26)
[2018-04-17] MEDS ORDERED: KLOR-CON 10 PO ONE ×3 (07:30→11:30)
[2018-04-17] MEDS: ZOFRAN IV PRN ×2 (07:50→11:01)
--- NOTE | 2018-04-17 08:35 | NUR ---
Dr. iWllie Tapia at bedside discussing EGD and colonoscopy. Consent explained to patient and signed by patient.
--- NOTE | 2018-04-17 08:40 | NUR ---
Bathing Educated pt on importance of hygiene, pt verbalized understanding. Patient provided own oral care. Shower cap placed on patient. OR arrived to get patient, bath not given at this time.
--- NOTE | 2018-04-17 08:50 | NUR ---
Off unit Patient transferred off unit via hospital bed to OR. Report given to Luanne Hong RN. Relinquished care of patient.
[2018-04-17 09:05] LABS: BILIRUBIN,URINE NEGATIVE (NEGATIVE); UROBILINOGEN,URINE NORMAL (NEGATIVE)
[2018-04-17 09:24] LABS: CALCIUM 6.6 mg/dL (8.4-10.5); CARBON DIOXIDE 14.1 mmol/L (20.0-32)
[2018-04-17] MEDS ORDERED: WATER ONE (09:29)
[2018-04-17 09:43] LABS: APPEARANCE,URINE CLEAR (CLEAR); UA COLOR YELLOW (YELLOW)
[2018-04-17] MEDS ORDERED: SUBLIMAZE ONE (09:45)
[2018-04-17] MEDS ORDERED: DIPRIVAN IV ONE (09:45)
[2018-04-17] MEDS ORDERED: NS 1000ML 1,000 ML ONE (10:51)
[2018-04-17] MEDS ORDERED: SUBLIMAZE IV PRN (11:00)
[2018-04-17] MEDS ORDERED: BENADRYL IV PRN (11:00)
[2018-04-17] MEDS ORDERED: VENTOLIN IH PRN (11:00)
[2018-04-17] MEDS ORDERED: ZOFRAN IV PRN (11:00)
--- NOTE | 2018-04-17 11:20 | NUR ---
Back to unit Patient arrived back on unit via hospital bed to ICU 2. Report received from AMAURI Rincon. Assumed care of patient. Patient placed on bedside monitor. SCD'S to BLE. Will continue to monitor. Call light within reach.
[2018-04-17] MEDS: PROTONIX IV IV SCH ×2 (11:52→21:27)
--- NOTE | 2018-04-17 12:16 | NUR ---
Radiology Radiology at bedside for ultrasound of gallbladder
--- NOTE | 2018-04-17 12:30 | NUR ---
Mobility level Patient mobility level A. Patient sitting up to chair for lunch. Addendum: 04/17/18 at 1457 by Rosa Tan RN - PBX INSPECTOR Level B. Patient continues to be nauseous and weak
--- NOTE | 2018-04-17 13:00 | NUR ---
Bathing Provided patient with washclothes and soap for sponge bath. Assisted patient with bathing to back and BLE. Bilateral feet assessed, no redness, sores, or breakdown noted. Clean Yellow non slip socks placed on patient. Patient did own venkata care. New gown placed on patient. Linens changed. Assisted pt back to bed. Call light within reach.
--- NOTE | 2018-04-17 14:05 | NUR ---
Radiology Radiology at bedside for chest xray
--- NOTE | 2018-04-17 14:11 | OPH ---
DATE OF SURGERY: PREOPERATIVE DIAGNOSES: History of abdominal pain, nausea and vomiting. POSTOPERATIVE DIAGNOSES: 1. Duodenitis. 2. Gastritis and pyloric stenosis. 3. Esophagitis. SURGEON: Surinder Tapia DO SPORTS RECRUITER: OR staff. ANESTHESIA: Total intravenous anesthesia by Jensen Smith CRNA. PROCEDURE PERFORMED: Esophagogastroduodenoscopy with biopsy. SPECIMENS: 1. Duodenal mucosa. 2. Gastric mucosa, all to path. ESTIMATED BLOOD LOSS: 3 mL. COUNTS: At the completion of the case, counts were correct per OR staff. DESCRIPTION OF PROCEDURE: The patient is a very pleasant 62-year-old male known from previous evaluation. Prior to procedure, informed consent was obtained. At the time of procedure, he was taken to the operative suite and placed in supine position. After time-out, he was placed in left lateral recumbent position. After adequate sedation, esophagogastroduodenoscope was advanced transorally with pneumoinsufflation distally through the pyloric channel that is somewhat narrowed to the duodenal bulb due to the amount of inflammation and it is not advanced further. There was noted to be a duodenal ulcer with fibrous cap on it. Biopsies were obtained of the duodenal bulb with good hemostasis noted. Camera was withdrawn to the level of pylorus. At the body of the stomach, distal stomach shows significant inflammation and biopsies were obtained. The retroflexed maneuver was performed. The cardia was grossly normal. The fundus did show proximal gastric inflammation as well. The camera was reduced. Stomach was decompressed. Scope was slowly withdrawn. Distal and mid esophagus do show some esophagitis, proximal esophagus and vocal cords were within normal limits. Camera was removed. Procedure was discontinued. The patient tolerated these procedures well. There were no acute complications noted. Surinder Tapia DO DR: MIGUELITO/gustavo JOB# [id number] CC: Jeffrey Vanegas MD
--- NOTE | 2018-04-17 14:32 | DIREP ---
PROCEDURE:CHEST 1 VIEW COMPARISON:[facility], CT, CT ABD/PELVIS W/O, 04/14/2018, 12:21 PM. INDICATIONS:Cough, DKA FINDINGS: LUNGS/PLEURA:No significant pulmonary parenchymal abnormalities. No effusions. VASCULATURE:Normal. Unremarkable pulmonary vasculature. CARDIAC:Normal. No cardiac silhouette abnormality or cardiomegaly. MEDIASTINUM:Normal. No visible mass or adenopathy. BONES:Normal. No fracture or visible bony lesion. OTHER:EKG leads overlie the chest. CONCLUSION:No acute cardiopulmonary abnormalities. Dictated by: Patel Pereira M.D. on 04/17/2018 at 02:30 PM
--- NOTE | 2018-04-17 16:19 | DIREP ---
PROCEDURE:US ABDOMEN LIMITED(SINGLE ORGAN-QUAD) COMPARISON:[facility], CT, CT ABD/PELVIS W/O, 04/14/2018, 12:21 PM. INDICATIONS:Abdominal pain FINDINGS: CBD:0.4 cm GALLBLADDER:0.3 cm RIGHT KIDNEY:13.1 x 6.2 x 6.3 cm PANCREAS:The pancreas is largely obscured by bowel gas shadowing. LIVER:Relatively echogenic and heterogeneous hepatic parenchyma may suggest steatosis or fibrofatty changes. No hepatic mass demonstrated sonographically. GALLBLADDER:There is small sludge present in the dependent portion of the gallbladder. BILIARY:There is no biliary ductal dilatation. RIGHT KIDNEY:Large. No hydronephrosis. OTHER:A small amount of ascites is noted. CONCLUSION: 1. Small ascites. 2. Hepatic steatosis or fibrofatty changes. 3. Small gallbladder sludge. Nondilated gallbladder. 4. Large right kidney. Dictated by: ZORANA Physician on 04/17/2018 at 04:09 PM ld
[2018-04-17 16:31] LABS: CALCIUM 6.4 mg/dL (8.4-10.5); CARBON DIOXIDE 13.5 mmol/L (20.0-32)
--- NOTE | 2018-04-17 17:40 | NUR ---
Edema Non pitting edema noted to left hand. IV site assessed, no s/s of infiltration noted. Cap refill <3, patient denies any pain or numbness in fingers. Patient educated to elevate extremity when lying down, pt verbalized understanding. Educated pt and family on reportable s/s related to site, pt and family verbalize understanding. Will continue to monitor.
--- NOTE | 2018-04-17 18:30 | NUR ---
REPORT Received bedside report. Assumed care of patient. Patient alert and oriented at this time. Denies any wants or needs. Family member at bedside. No s/s of distress noted. Call light in reach. Will continue to monitor.
[2018-04-17 21:28] LABS: CALCIUM 6.5 mg/dL (8.4-10.5); CARBON DIOXIDE 10.7 mmol/L (20.0-32)
[2018-04-17] MEDS ORDERED: D5W-1/2NS/KCL 40MEQ 1,000 ML ONE (21:59)
[2018-04-17] MEDS ORDERED: HUMULIN R IV SCH (22:00)
[2018-04-17] MEDS ORDERED: HUMULIN R 100 UNIT in NS 100ML 100 ML SQ ONE (22:00)
[2018-04-17] MEDS ORDERED: D5LR 1000ML/KCL 40MEQ 1,000 ML IV SCH (22:00)
--- NOTE | 2018-04-17 22:00 | NUR ---
INSULIN DRIP Blood sugar taken result of 132. Insulin drip started at 2 units per hour. Addendum: 04/17/18 at 2337 by YVETTE Parkinson RN blood sugar taken at 2215 and insulin drip started at 2215
[2018-04-17] MEDS ORDERED: NS 250ML 250 ML IV ONE (22:01)
--- NOTE | 2018-04-17 23:15 | NUR ---
decrease insulin drip blood sugar of 154 insulin drip decreased to 1.5 unit/hour per protocol.
[2018-04-17] MEDS ORDERED: D5W-1/2NS/KCL 40MEQ 1,000 ML IV ONE (23:30)
[2018-04-18] VITALS (61 sets, daily range): BP systolic 101–155; BP diastolic 45–90
--- NOTE | 2018-04-18 00:15 | NUR ---
insulin drip blood sugar 139 insulin drip decreased to 1 unit per hour
[2018-04-18] MEDS: NS 1000ML 1,000 ML IV SCH ×4 (00:30→19:57)
[2018-04-18 01:08] LABS: CALCIUM 6.1 mg/dL (8.4-10.5)
[2018-04-18] MEDS: REGLAN IV SCH ×4 (01:14→17:13)
--- NOTE | 2018-04-18 01:15 | NUR ---
Insulin drip blood sugar 149 insulin drip remains at 1 unit per hour.
--- NOTE | 2018-04-18 02:20 | NUR ---
Insulin drip blood sugar 157 insulin drip increased to 1.5 units per hour.
--- NOTE | 2018-04-18 02:32 | CNH ---
DATE OF CONSULTATION: 04/17/2018 BRIEF CONSULTATION CHIEF COMPLAINT: Abdominal pain. HISTORY OF PRESENT ILLNESS: This is a 62-year-old male who apparently has had several days of illness. He is admitted to hospital and has diabetic ketoacidosis on admission. He was noted to have some concerns on his CT. Apparently, he has some history of poor compliance and poorly controlled diabetes. He had nausea and vomiting prior to admission and he has also had some since admission per his report to me. At time of my evaluation, he was in the ICU. Per review of the H and P, apparently, he was having symptoms for at least 6 days prior to admission. He has had poor p.o. tolerance. He has had refractory diabetic ketoacidosis since treatment has been initiated. He has persistent upper abdominal pain. On CT scan, he has changes consistent with chronic pancreatitis. PAST MEDICAL HISTORY: Includes type 2 diabetes, previous tobacco use. He denies any hypertension or coronary artery disease. PAST SURGICAL HISTORY: He tells me he had cataract surgery. ALLERGIES: PENICILLIN. HOME MEDICATIONS: He does not routinely take any home meds for diabetes. SOCIAL HISTORY: Remote history of tobacco use. No alcohol or illicit drug use. FAMILY HISTORY: Mother at age 72 from brain cancer, father at age 72 from heart attack per his report to me. 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 He has had some occupational exposures. REVIEW OF SYSTEMS: CONSTITUTIONAL: He has had some weakness, but no reported fever or chills. ENDOCRINE: He has known diabetes, no thyroid disease. CARDIOVASCULAR: No chest pain or trouble breathing. PULMONARY: No dyspnea or cough. ABDOMEN: As per HPI. PHYSICAL EXAMINATION: VITAL SIGNS: This is an afebrile male. Today, temperature 98.3, pulse 89, respiratory rate 20. His last documented blood pressure is 152/69. HEENT: Normocephalic, atraumatic. [place] mucous membranes. NECK: Supple and soft. Trachea is midline. No JVD or thyromegaly. HEART: Essentially regular rate and rhythm. LUNGS: Clear anteriorly bilaterally. ABDOMEN: Bowel sounds are positive and soft. He has minimal tenderness in the upper abdomen. EXTREMITIES: Show positive radial pulses bilaterally. Symmetrically decreased dorsal pedal pulses bilaterally. NEUROLOGIC: No acute findings. SKIN INTEGUMENT: Warm and dry. LABORATORY DATA: On admission, blood gas, pH 7.2 with a pCO2 of 11.4 and lactic acid level of 3.2. His white count on admission was elevated today is 9.4, hemoglobin 14.3, platelet count is 174. Chemistry today shows BUN of 13, creatinine 0.77, glucose is 181. His last reported potassium is 3.2. SURGICAL ASSESSMENT: 1. Diabetic ketoacidosis. 2. History of diabetes with moderate compliance. 3. Clinical dehydration secondary to ketoacidosis. 4. Chronic pancreatitis based on CT findings. PLAN: The patient is seen and examined. The chart is reviewed. Because of persistent GI symptoms, negative H. pylori and CT scan findings, this patient has been consented for and will plan for EGD soon. I have discussed this with the patient and with the hospitalist. Surinder Tapia DO DR: MIGUELITO/gustavo JOB# [id number] CC: Jeffrey Vanegas MD
--- NOTE | 2018-04-18 02:49 | PNH ---
DATE: 04/16/2018 SUBJECTIVE: He is not eating well. He still complains of abdominal discomfort, especially in epigastric region. His pain did improve. His bicarbonate improved to 18.5 at 3:00 this afternoon. No other acute events overnight. OBJECTIVE: VITAL SIGNS: T-max last 24 hours 99.3, pulse 91, respiratory rate 15, blood pressure 139/77, O2 saturation 98% on room air. GENERAL: He is alert, in no acute distress at time of exam, chronic ill-appearing gentleman. HEENT: Pupils equal, round, reactive to light. Sclerae are anicteric. Oropharynx is clear. Mucous membranes are moist. NECK: Supple, no lymphadenopathy. CARDIOVASCULAR: At time of exam was slightly tachycardic, regular rhythm. LUNGS: Clear bilaterally. No wheezing. ABDOMEN: Soft. Bowel sounds are present. EXTREMITIES: No cyanosis, clubbing or significant edema. NEUROLOGIC: Grossly nonfocal. LABORATORY DATA: Sodium 133, potassium 2.8, chloride 102, CO2 is 18.5, glucose is 213, BUN is 15, creatinine 0.76, calcium 6.9. CBC: White count 8.3, hemoglobin 14.0 and platelets 159. Differential: 71% neutrophils, 10%, lymphocytes, 18% monocytes. ASSESSMENT AND PLAN: The patient is a 62-year-old man here with diabetic ketoacidosis. This slowly improving with signs and symptoms concerning for gastritis or gastroesophageal reflux disease. 1. We will continue IV for hydration. 2. We will advance diet. His bicarbonate was 18. We will monitor to make sure he does not go back into diabetic ketoacidosis. 3. We will cover sliding scale insulin at this point. 4. Appropriate p.r.n. pain and nausea medication. Time spent on 04/16/2018 is 45 minutes. Jeffrey Vanegas MD DR: MIKE/gustavo JOB# [id number] DARIEN
--- NOTE | 2018-04-18 03:15 | NUR ---
Insulin drip blood sugar 159 insulin drip remains at 1.5 units per hour.
--- NOTE | 2018-04-18 04:15 | NUR ---
Insulin drip blood sugar 168 insulin drip increased to 1.5 units per hour.
--- NOTE | 2018-04-18 05:08 | PNH ---
DATE: 04/17/2018 SUBJECTIVE: He still has problems with eating. He states he gets nauseated. He also has some epigastric pain. Lab workup this morning did reveal his gap opened up again. He had a bicarbonate of 12.6 on labs. Due to the concern for difficult to control the diabetic ketoacidosis, probably other reasons for the DKA besides the insulin noncompliance. He denies any cough or dysuria. No diarrhea. OBJECTIVE: VITAL SIGNS: T-max last 24 hours is 99.2, pulse of 92, respiratory rate is 28, blood pressure 102/39, O2 saturation 97% on room air. GENERAL: He is alert, in no distress at time of exam. HEENT: Pupils equal, round and reactive to light. Sclerae are anicteric. Oropharynx is clear. Mucous membranes are moist. NECK: Supple, no lymphadenopathy. CARDIOVASCULAR: At time of exam was regular rate and rhythm. LUNGS: Clear bilaterally. ABDOMEN: Soft. Bowel sounds are present. EXTREMITIES: No cyanosis, clubbing, edema. NEUROLOGIC: Grossly nonfocal. LABORATORY DATA: Sodium 134, potassium 3.2, chloride 104, CO2 is 14.1, glucose is 181, calcium 6.6, troponin 0.03, BUN 13, creatinine 0.77. CBC: White count 9.4, hemoglobin 14.3, platelets 174. Differentials: 74% neutrophils, 10% lymphocytes, 14% monocytes. Urine drug screen is positive for THC. UA is essentially negative except for glucosuria. ASSESSMENT AND PLAN: The patient is a 62-year-old man here with diabetic ketoacidosis with epigastric discomfort. 1. Gastrointestinal: General Surgery was consulted. EGD did show significant gastritis, duodenitis. 2. Endocrine: He does have DKA, again we will give IV fluid hydration. We may have to put him back on insulin drip and D5, but will try to rehydrate to improve his bicarbonate. 3. Appropriate p.r.n. pain and nausea medications. Time spent on 04/17/2018 is 40 minutes. Jeffrey Vanegas MD DR: MIKE/gustavo JOB# [id number]
--- NOTE | 2018-04-18 05:15 | NUR ---
Insulin drip blood sugar 145 insulin drip decreased to 1 unit per hour.
[2018-04-18 06:11] LABS: CALCIUM 6.5 mg/dL (8.4-10.5); CARBON DIOXIDE 14.3 mmol/L (20.0-32)
--- NOTE | 2018-04-18 06:40 | NUR ---
Bedside report received from AMAURI Henning and assumed care.
--- NOTE | 2018-04-18 07:00 | NUR ---
Patient is on every hour blood glucose check, on insulin drip and will be titrating every hour base on the resulted blood glucose level.
--- NOTE | 2018-04-18 08:00 | NUR ---
MOBILITY Patient ambulated from bed to chair to eat breakfast.
[2018-04-18] MEDS ORDERED: HUMULIN R 100 UNIT in NS 100ML 100 ML SQ SCH (08:30)
--- NOTE | 2018-04-18 08:30 | NUR ---
Encourage patient to help with self care activities, patient gave himself a sponge bath, brush his teeth. Patient stated he cannot reach for his feet, clean patient feet and assisted with shaving his benito. Bed linen and gown change.
[2018-04-18] MEDS: PROTONIX IV IV SCH ×2 (08:34→22:12)
[2018-04-18] MEDS: D5W-1/2NS/KCL 40MEQ 1,000 ML IV SCH ×2 (08:38→18:40)
--- NOTE | 2018-04-18 10:30 | NUR ---
MOBILITY Patient ambulated around his room 5 times.
[2018-04-18 11:21] LABS: CALCIUM 6.8 mg/dL (8.4-10.5); CARBON DIOXIDE 14.2 mmol/L (20.0-32)
--- NOTE | 2018-04-18 11:40 | NUR ---
Dr. Tapia at bedside. Assess the patient and discuss plan of care. Explain in detail the procedure done (EGD) yesterday. No new order at this time.
[2018-04-18] MEDS ORDERED: NS 1000ML 1,000 ML IV ONE (12:00)
--- NOTE | 2018-04-18 12:00 | NUR ---
MOBILITY Patient ambulated from bed to chair to eat lunch.
--- NOTE | 2018-04-18 15:00 | NUR ---
MOBILITY Patient ambulated from bed to bedside commode, patient had a bowel movement of form brown stool.
[2018-04-18 15:54] LABS: CALCIUM 6.6 mg/dL (8.4-10.5); CARBON DIOXIDE 15.3 mmol/L (20.0-32)
--- NOTE | 2018-04-18 17:37 | NUR ---
MOBILITY Patient ambulated from bed to chair to eat dinner.
--- NOTE | 2018-04-18 18:25 | NUR ---
Dr. Vanegas at bedside. Assess the patient and discuss plan of care.
--- NOTE | 2018-04-18 18:40 | NUR ---
New order received from Dr. Vanegas Decrease the flow rate of D51/2 NS with 40 KCL from 100 ml/hr to 50 ml/hr. Restart the NS to be infuse at 125 ml/hr on the R FA G 20 IV access.
--- NOTE | 2018-04-18 18:50 | NUR ---
Bedside report given to incoming shift nurses and relinquished care.
--- NOTE | 2018-04-18 18:52 | NUR ---
REPORT RECEIVED. ASSUMED PT CARE.
--- NOTE | 2018-04-18 19:40 | NUR ---
MOBILITY LEVEL A: PT AT SIDE OF BED TO USE URINAL. PT VOIDED 720ML.
--- NOTE | 2018-04-18 20:00 | NUR ---
PT SEATED IN BED SOCIALIZING WITH FAMILY. PT DENIES ANY PAIN/NEEDS AT THIS TIME. ASSESSMENT DONE CHARTED. VITAL SIGNS STABLE AND WNL. BED IN LOW POSITION AND LOCKED. CALL LIGHT WITHIN REACH. PT HAS SRINATH SCD. WILL CONTINUE TO MONITOR. Addendum: 04/19/18 at 0247 by Patrick Rehman RN RN INSULIN GTT RUNNING AT 2 UNITS PER HOUR.
--- NOTE | 2018-04-18 21:00 | NUR ---
MOBILITY LEVEL A: PT TO AMBULATE AT LEAST 3X PER DAY PT TO PARTICIPATE IN PERSONAL CARE PT TO WALK TO BATHROOM FOR ALL TOILETING NEEDS PT TO EAT ALL MEALS SITTING IN A BEDSIDE EWA. MOBILITY LEVEL DISCUSSED WITH PT WITH UNDERSTANDING. PER PT REPORT "I DID ALL THAT TODAY".
[2018-04-18 21:34] LABS: CARBON DIOXIDE 18.8 mmol/L (20.0-32)
--- NOTE | 2018-04-18 21:36 | NUR ---
INSULIN GTT DECREASED TO 1 UNIT FROM 2 UNIT PER HOUR. BLOOD SUGAR IS 152MG/DL. TELEPHONE ORDER PER DR OMALLEY TO DECREASE INSULIN GTT. ORDER RBAV.
[2018-04-18] MEDS ORDERED: KLOR-CON 10 PO ONE (22:30)
[2018-04-19] VITALS (30 sets, daily range): BP systolic 108–158; BP diastolic 43–90
[2018-04-19] MEDS: REGLAN IV SCH ×4 (00:10→18:02)
--- NOTE | 2018-04-19 01:36 | NUR ---
SNACK: PT REQUESTED [employer]. PROVIDED PER PT REQUEST.
--- NOTE | 2018-04-19 02:40 | NUR ---
MOBILITY LEVEL A: PT AT SIDE OF BED TO USE URINAL. PT VOIDED 650ML.
[2018-04-19] MEDS: NS 1000ML 1,000 ML IV SCH ×3 (03:32→23:10)
--- NOTE | 2018-04-19 04:37 | NUR ---
CORPORATE TRAINING MANAGER AT BEDSIDE FOR BLOOD DRAW.
--- NOTE | 2018-04-19 04:47 | NUR ---
SNACK: PT REQUESTED [employer]. PT SEATED AT EDGE OF BED DRINKING BROTH.
[2018-04-19 05:37] LABS: CALCIUM 6.8 mg/dL (8.4-10.5); CARBON DIOXIDE 19.8 mmol/L (20.0-32)
--- NOTE | 2018-04-19 05:40 | PNH ---
DATE: THIS IS A FOLLOWUP PROGRESS NOTE SUBJECTIVE: A 62-year-old male, in no acute distress. He was seen in his room earlier today, up to the chair, appears to be tolerating clears. OBJECTIVE: VITAL SIGNS: He is apparently afebrile today, most recent heart rate was 82, last blood pressure was 146/64, respiratory rate 20. ABDOMEN: Bowel sounds are positive and soft. He has minimal tenderness. LABORATORY DATA: He has no hematology for today. Chemistry today shows sodium 134, potassium 3.2, chloride 106, bicarbonate 14.2, BUN is 6, creatinine 0.77, calcium is 6.8. SURGICAL ASSESSMENT: 1. Acute cholecystitis and duodenitis with peptic ulcer disease. 2. History of diabetic ketoacidosis. 3. History of poorly controlled diabetes. PLAN: 1. The patient is seen and examined. Chart is reviewed. 2. Continue medical management per the primary service. We will treat the GI component with PPI b.i.d. Surinder Tapia DO DR: MIGUELITO/gustavo JOB# [id number] CC: Jeffrey Vanegas MD
--- NOTE | 2018-04-19 06:45 | NUR ---
BEDSIDE REPORT TO AM SHIFT. PT CARE RELINQUISHED.
--- NOTE | 2018-04-19 07:00 | NUR ---
REPORT RECEIVED FROM PREVIOUS SHIFT. ASSUMED CARE OF PATIENT.
--- NOTE | 2018-04-19 07:58 | NUR ---
DR. OMALLEY AT BEDSIDE NEW ORDERS GIVEN: GIVE 10 UNITS NPH NOW, STOP D5 AND INSULIN DRIP 1 HOUR LATER. CONTINUE Q1 HOUR GLUCOSE CHECKS FOR 2 MORE TIMES AND THEN STOP. DR. OMALLEY WILL CHANGE TO [facility]. ADVANCE DIET TO FULL LIQUID. RBVO.
[2018-04-19] MEDS ORDERED: HUMULIN N SQ ONE (07:59)
[2018-04-19] MEDS ORDERED: HUMULIN SQ ONE (08:00)
[2018-04-19] MEDS: PROTONIX IV IV SCH ×2 (09:11→22:37)
[2018-04-19] MEDS ORDERED: KLOR-CON 10 PO ONE ×2 (09:13→10:00)
--- NOTE | 2018-04-19 10:17 | NUR ---
MOBILITY LEVEL A DOES NOT MEET ANY EXCLUSION CRITERIA
[2018-04-19] MEDS ORDERED: MAGNESIUM SULFATE 50 ML IV ONE ×2 (11:00→20:00)
--- NOTE | 2018-04-19 12:29 | PNH ---
DATE: 04/18/2018 SUBJECTIVE: He states he feels better. He is drinking fluids better. No other acute events overnight. His bicarbonate continues to be less than 18, despite fluid resuscitation, insulin drip and D5. OBJECTIVE: VITAL SIGNS: T-max last 24 hours is 98.8, pulse of 90, respiratory rate is 22, blood pressure 144/70, O2 saturation 99% on room air. GENERAL: He is alert, in no acute distress at time of exam. HEENT: Pupils equal, round, reactive to light. Sclerae are anicteric. Oropharynx is clear. Mucous membranes are moist. NECK: Supple, no lymphadenopathy. CARDIOVASCULAR: At time of exam was regular rate and rhythm. LUNGS: Clear bilaterally. No wheezing. ABDOMEN: Soft. Bowel sounds are present, nontender to palpation. EXTREMITIES: No cyanosis, clubbing or significant edema. NEUROLOGIC: Grossly nonfocal. LABORATORY DATA: The last basic metabolic panel: Sodium 135, potassium 3.1, chloride 106, CO2 is 15, BUN 4, creatinine 0.67, glucose 186, calcium 6.6. ASSESSMENT AND PLAN: The patient is a 62-year-old man here with duodenitis, gastritis, diabetic ketoacidosis. 1. Continue IV Protonix q. 12 hours. 2. Continue insulin drip and fluids until bicarbonate is over 18 for now. Time spent on 04/18/2018 is 30 minutes. Jeffrey Vanegas MD DR: MIKE/gustavo JOB# [id number]
[2018-04-19 12:56] LABS: CALCIUM 6.8 mg/dL (8.4-10.5); CARBON DIOXIDE 16.9 mmol/L (20.0-32)
[2018-04-19] MEDS ORDERED: NS 1000ML 1,000 ML IV ONE (13:30)
--- NOTE | 2018-04-19 14:00 | NUR ---
PATIENT REPORTS IV IN L WRIST HURTING. REDNESS NOTED AROUND SITE. IV STOPPED. NEW 20G IV INSERTED INTO R AC USING STERILE TECHNIQUE.
[2018-04-19 18:24] LABS: CARBON DIOXIDE 21.7 mmol/L (20.0-32)
--- NOTE | 2018-04-19 20:00 | NUR ---
Early mobility Patient uses urinal and bedside commode for all toileting needs. Patient own ADL'S and grooming.
[2018-04-19] MEDS: HUMULIN R SQ SCH (21:00)
[2018-04-19] MEDS: FLAGYL PO SCH (22:36)
[2018-04-19] MEDS: BIAXIN PO SCH (22:36)
[2018-04-20] VITALS (11 sets, daily range): BP systolic 126–153; BP diastolic 60–81
[2018-04-20] MEDS: REGLAN IV SCH ×4 (00:02→18:21)
--- NOTE | 2018-04-20 01:42 | PNH ---
DATE: 04/19/2018 SUBJECTIVE: He states he feels better. He is tolerating diet well. Denies any pain or nausea. OBJECTIVE: VITAL SIGNS: T-max last 24 hours is 99.6, pulse of 91, respirations 27, blood pressure 158/82, O2 saturation 97% on room air. GENERAL: He is alert, in no acute distress at time of exam. HEENT: Pupils equal, round, reactive to light. Sclerae are anicteric. Oropharynx is clear. Mucous membranes are moist. NECK: Supple, no lymphadenopathy. CARDIOVASCULAR: At time of exam was regular rate and rhythm. LUNGS: Clear bilaterally. No wheezing. ABDOMEN: Soft. Bowel sounds are present, nontender to palpation. EXTREMITIES: No cyanosis, clubbing or significant edema. NEUROLOGIC: Grossly nonfocal. LABORATORY DATA: Chemistry this morning showed a bicarbonate of 19.8 with repeat chemistry this afternoon with sodium 133, potassium 3.3, chloride 105, CO2 17, BUN 3, creatinine 0.63, glucose 165, calcium 6.8 with magnesium 1.3. ASSESSMENT AND PLAN: The patient is a 62-year-old man here with significant duodenitis, gastritis with diabetic ketoacidosis, hypomagnesemia. 1. Encourage increased nutrition. 2. Replace electrolytes as indicated. 3. We will give IV fluid boluses and if his bicarbonate continues to drop, we may have to place him back on D5 and insulin drip. Time spent on 04/19/2018 is 25 minutes. Jeffrey Vanegas MD DR: MIKE/gustavo JOB# [id number]
[2018-04-20] MEDS: NS 1000ML 1,000 ML IV SCH ×3 (05:00→18:32)
[2018-04-20 06:18] LABS: CALCIUM 6.8 mg/dL (8.4-10.5)
[2018-04-20 06:23] LABS: BASOPHIL % 0.3 % (0.0-0.2); EOSINOPHIL # 0.1 10^3/uL (0.0-0.2); EOSINOPHIL % 1.6 % (0.0-5.0); HEMOGLOBIN 12.1 g/dL (13.9-16.3); LYMPHOCYTES # 1.2 10^3/uL (1.0-4.8); LYMPHOCYTES % 18.2 % (24.0-44.0); MEAN CELL HGB 30.3 pg (26-34); MEAN CELL HGB CONCENTRATION 36.3 g/dL (33-37); MEAN CORP VOLUME 83.5 fL (78-100); MEAN PLATELET VOLUME 9.2 fL (7.8-11.0); MONOCYTES # 1.3 10^3/uL (0.3-0.8); MONOCYTES % 19.3 % (5.0-12.0); NEUTROPHIL # 3.8 10^3/uL (1.8-7.7); RED CELL DISTRIBUTION WIDTH 13.3 % (11.5-14.5); WHITE BLOOD CELL 6.8 10^3/uL (4.5-11.0)
--- NOTE | 2018-04-20 06:38 | PNH ---
DATE: 04/19/2018 SUBJECTIVE: This is a 62-year-old male who is seen in his room this morning in the ICU, in no acute distress. He is tolerating some diet. He reports he feels better. His abdominal pain is improved. OBJECTIVE: VITAL SIGNS: Last temperature for today is 98.2. Most recent heart rate is 111, blood pressure 114/61, O2 sat 97%. ABDOMEN: The bowel sounds positive, soft. He had no significant tenderness at the time of my examination. LABORATORY DATA: Today show potassium 3.3, BUN is 3, creatinine 0.63. SURGICAL ASSESSMENT: 1. Peptic ulcer disease associated gastritis and duodenitis. 2. Hypomagnesemia. PLAN: 1. The patient is seen and examined. Chart is reviewed. 2. Continue medical management per the primary service. Replace electrolytes. Surgery will follow as needed. Surinder Tapia DO DR: MIGUELITO/gustavo JOB# [id number] CC: Jeffrey Vanegas MD
[2018-04-20] MEDS ORDERED: MAGNESIUM SULFATE 50 ML IV ONE ×2 (07:00→22:00)
--- NOTE | 2018-04-20 07:00 | NUR ---
Mobility level Patient mobility level A. Patient at side of bed urinating in urinal with no assistance needing.
[2018-04-20] MEDS ORDERED: HUMULIN N SQ ONE (07:18)
[2018-04-20] MEDS: HUMULIN R SQ SCH ×4 (07:45→21:00)
--- NOTE | 2018-04-20 07:58 | NUR ---
Mobility Patient sitting up in chair for breakfast.
--- NOTE | 2018-04-20 08:50 | NUR ---
Dr. Willie Tapia at bedside. No new orders received.
[2018-04-20] MEDS: PROTONIX IV IV SCH (09:06)
[2018-04-20] MEDS: FLAGYL PO SCH ×3 (09:07→21:00)
[2018-04-20] MEDS: BIAXIN PO SCH ×2 (09:07→21:00)
--- NOTE | 2018-04-20 09:10 | NUR ---
Dr. Guilherme Vanegas at bedside. New order received to decrease IV fluids to 125mls/hr. RBVO.
--- NOTE | 2018-04-20 10:00 | NUR ---
BSC Patient up to bedside commode. Loose brown bowel movement noted, mixed with urine. Patient provided own venkata care and assisted self back to bed.
[2018-04-20 10:26] LABS: BAND NEUTROPHILS 3 % (2-6); LYMPHOCYTE 17 % (25-36); SEGMENTED NEUTROPHILS 65 % (31-76)
[2018-04-20 10:27] LABS: EOSINOPHIL 1 % (1-4); MONOCYTE 12 % (3-9)
--- NOTE | 2018-04-20 10:45 | NUR ---
Transfer Patient transferred to [facility] room 331 via wheelchair. Belongings transferred with patient. Bedside report given to AMAURI Horvath. Relinquished care of patient.
--- NOTE | 2018-04-20 10:45 | NUR ---
ARRIVAL PT ARRIVED TO FLOOR VIA W/C. REPORT RECEIVED FROM DAVID RN, ASSUMED CARE OF PT. NO S/S OF DISTRESS AT THIS TIME. CALL LIGHT WITHIN REACH. BED LOCKED AND LOW POSITION.
[2018-04-20] MEDS ORDERED: KLOR-CON 10 PO SCH (22:00)
[2018-04-21] MEDS ORDERED: KLOR-CON 10 PO SCH (01:00)
[2018-04-21 01:01] VITALS: BP 143/82
[2018-04-21] MEDS: REGLAN IV SCH ×4 (02:27→17:06)
[2018-04-21 05:00] VITALS: BP 145/82
--- NOTE | 2018-04-21 05:29 | PNH ---
DATE: SUBJECTIVE: A 62-year-old male in no acute distress, seen initially in his room in the ICU on repeat evaluation. He is on the floor. His abdominal pain is remarkably improved. OBJECTIVE: VITAL SIGNS: Last temperature 98.7, pulse 85, respiratory rate of 18, blood pressure 135/75. ABDOMEN: Bowel sounds positive, soft, nontender. LABORATORY DATA: Today show white count 6.8, hemoglobin 12.1, platelet count 236. Chemistry today shows BUN of 3, creatinine 0.65. His potassium to be low at 2.9. His magnesium is low as 1.5. ASSESSMENT: 1. Gastritis and duodenitis. 2. Electrolyte abnormalities. PLAN: 1. The patient is seen and examined. Chart is reviewed. 2. Continue PPI. We will replace electrolytes. Surinder Tapia DO DR: MIGUELITO/gustavo JOB# [id number] CC: Jeffrey Vanegas MD
--- NOTE | 2018-04-21 06:30 | NUR ---
REPORT BEDSIDE REPORT RECEIVED FROM PORTABLE IRRIGATION OPERATOR.
[2018-04-21] MEDS: NS 1000ML 1,000 ML IV SCH ×3 (06:51→17:28)
[2018-04-21 06:57] LABS: CARBON DIOXIDE 19.9 mmol/L (20.0-32)
[2018-04-21] MEDS ORDERED: MAGNESIUM SULFATE 50 ML IV ONE ×2 (07:30→20:30)
--- NOTE | 2018-04-21 07:30 | NUR ---
DR. CHEMA BEAR AT BEDSIDE. DISCUSSED HOME MEDICATION REGIMEN AND FOLLOW UP APPOINTMENT WITH PATIENT. PATIENT VERBALIZED UNDERSTANDING. BED IN LOW LOCKED POSITION WITH SIDE RAILS X2. CALL LIGHT AND BEDSIDE TABLE WITHIN REACH.
[2018-04-21] MEDS: HUMULIN R SQ SCH ×4 (08:29→22:01)
[2018-04-21] MEDS: PROTONIX PO SCH ×2 (08:33→22:26)
[2018-04-21] MEDS: BIAXIN PO SCH ×2 (08:33→22:26)
[2018-04-21] MEDS: FLAGYL PO SCH ×3 (08:33→22:26)
[2018-04-21 09:32] VITALS: BP 128/66
[2018-04-21 12:14] VITALS: BP 146/81
--- NOTE | 2018-04-21 16:01 | NUR ---
STATUS PATIENT RESTING IN BED WATCHING TV. PATIENT ENCOURAGED TO INCREASE FLUID INTAKE AND TO AMBULATE. PATIENT STATES HE IS DRINKING LOTS OF WATER AND WILL WALK IN JUST A BIT. DENIES PAIN OR DISCOMFORT AT THIS TIME. BED IN LOW LOCKED POSITION WITH SIDE RAILS X2. CALL LIGHT AND BEDSIDE TABLE WITHIN REACH.
[2018-04-21 17:34] LABS: CALCIUM 7.6 mg/dL (8.4-10.5); CARBON DIOXIDE 23.4 mmol/L (20.0-32)
[2018-04-21 18:03] VITALS: BP 138/78
--- NOTE | 2018-04-21 18:52 | NUR ---
REPORT BEDSIDE REPORT GIVEN TO FIELD SALES REPRESENTATIVE.
[2018-04-21 20:40] VITALS: BP 119/78
--- NOTE | 2018-04-21 23:42 | PNH ---
DATE: 04/20/2018 SUBJECTIVE: He is doing much better, tolerating diet well. Denies any nausea or vomiting. No other acute events overnight. OBJECTIVE: VITAL SIGNS: T-max last 24 hours is 98.7, pulse of 90, respiratory rate 17, blood pressure 135/79, O2 saturation 98% on room air. GENERAL: He is alert, in no acute distress at time of exam. HEENT: Pupils equal, round, reactive to light. Sclerae are anicteric. Oropharynx is clear. Mucous membranes are moist. NECK: Supple, no lymphadenopathy. CARDIOVASCULAR: At time of exam is regular rate and rhythm. LUNGS: Clear bilaterally. ABDOMEN: Soft. Bowel sounds are present. EXTREMITIES: No cyanosis, clubbing or significant edema. NEUROLOGIC: Grossly nonfocal. LABORATORY DATA: CBC: White count 6.8, hemoglobin 12.1, platelets 236. Sodium 144, potassium 2.9, chloride 108, CO2 of 23, BUN 3, creatinine 0.65, glucose 154, calcium 6.8, magnesium 1.5. ASSESSMENT AND PLAN: The patient is a 62-year-old man here with resolved diabetic ketoacidosis with significant gastritis, duodenitis with multiple electrolyte abnormalities. 1. We will replace electrolytes as indicated. 2. Continue IV PPI twice a day. 3. We will move to the medical floor. ADA diet, Accu-Cheks a.c. and at bedtime, sliding scale insulin. 4. Continue IV fluid hydration. Time spent on 04/20/2018 is 25 minutes. Jeffrey Vanegas MD DR: MIKE/gustavo JOB# [id number]
[2018-04-22 00:50] VITALS: BP 134/83
[2018-04-22] MEDS: REGLAN IV SCH ×3 (01:03→12:41)
--- NOTE | 2018-04-22 02:31 | PNH ---
DATE: 04/21/2018 SUBJECTIVE: A 62-year-old male in no acute distress. He is in his room. He is tolerating diet today. He reports he feels much better than admission. OBJECTIVE: VITAL SIGNS: Last temperature is 98.0, pulse 72, respiratory rate 16, blood pressure 145/82. ABDOMEN: The bowel sounds positive, soft, it is nontender. LABORATORY DATA: Today show potassium is 3.0, CO2 is 19.9, BUN is 3, creatinine 0.7. His magnesium is 1.6. ASSESSMENT: 1. Acute gastritis and duodenitis with some ulcer disease. 2. History of diabetes and poor control. 3. Electrolyte abnormality and derangement secondary to recent diabetic ketoacidosis . PLAN: The patient is seen and examined. Chart is reviewed. At this time, continue meds for treatment of gastritis and duodenitis and medical management for his other issues. Surinder Tapia DO DR: MIGUELITO/gustavo JOB# [id number] CC: Jeffrey Vanegas MD
[2018-04-22 04:31] VITALS: BP 129/68
[2018-04-22 05:58] LABS: CALCIUM 7.1 mg/dL (8.4-10.5)
[2018-04-22 08:20] VITALS: BP 147/72
[2018-04-22] MEDS: PROTONIX PO SCH (08:23)
[2018-04-22] MEDS: BIAXIN PO SCH (08:23)
[2018-04-22] MEDS: FLAGYL PO SCH (08:23)
[2018-04-22] MEDS: HUMULIN R SQ SCH ×2 (09:07→12:43)
[2018-04-22] MEDS ORDERED: METR250T PO (09:48)
[2018-04-22] MEDS ORDERED: GLYB2.5T2 PO (09:48)
[2018-04-22] MEDS ORDERED: POTA10TA6 PO (09:48)
[2018-04-22] MEDS ORDERED: OMEP20TA9 PO (09:48)
[2018-04-22] MEDS ORDERED: CLARITHROMYCIN PO (09:48)
--- NOTE | 2018-04-22 09:53 | PRM.DC ---
Discharge Summary Date of Discharge: Apr 22, 2018 Reason for Visit: Nausea and vomiting History Present Illness: (1) Gastritis and duodenitis Status: Acute ICD Code: K29.90 - Gastroduodenitis, unspecified, without bleeding SNOMED: 969723432 Assessment & Plan: Proton pump inhibitor twice a day - take on an empty stomach (2) H. pylori duodenitis Status: Chronic ICD Code: K29.80 - Duodenitis without bleeding; B96.81 - Helicobacter pylori [ H. pylori] as the cause of diseases classified elsewhere SNOMED: 058100309 Assessment & Plan: Antibiotics and proton pump inhibitor at home (3) DKA (diabetic ketoacidoses) Status: Resolved ICD Code: E13.10 - Other specified diabetes mellitus with ketoacidosis without coma SNOMED: 229384053, [id number] General: Alert, Oriented X3, Cooperative, No acute distress HEENT: PERRLA, EOMI Neck: Supple, No JVD Lungs: Clear to auscultation, Normal air movement Heart: Regular rate, Normal S1, Normal S2 Abdomen: Normal bowel sounds, Soft, No tenderness Extremities: No clubbing, No cyanosis, No edema Skin: No breakdown Neuro: Normal speech, Strength at 5/5 X4 ext, Sensation intact, Cranial nerves 3-12 NL Psych/Mental Status: Mood NL Results(Labs/Rad) Laboratory Tests Test 04/21/18 05:30 04/21/18 17:20 04/22/18 05:07 Sodium Level 142 mmol/L 138 mmol/L 142 mmol/L Potassium Level 3.0 mmol/L 2.9 mmol/L 2.7 mmol/L Chloride Level 106.0 mmol/L 104.0 mmol/L 107.0 mmol/L Carbon Dioxide Level 19.9 mmol/L 23.4 mmol/L 25.0 mmol/L Glucose Level 162 mg/dL 250 mg/dL 167 mg/dL Blood Urea Nitrogen 3 mg/dL 3 mg/dL 2 mg/dL Creatinine 0.70 mg/dL 0.80 mg/dL 0.65 mg/dL Calcium Level 7.0 mg/dL 7.6 mg/dL 7.1 mg/dL Anion Gap 19.1 13.5 12.7 Estimated GFR () 138.3 118.5 150.6 BUN/Creatinine Ratio 4.0 3.0 3.0 Magnesium Level 1.6 mg/dL 1.7 mg/dL Scheduled Glyburide (Glyburide), 2.5 MG PO BID Metronidazole (Flagyl), 500 MG PO TID Omeprazole (Omeprazole), 20 MG PO BID Potassium Chloride (Klor-Con 10), 10 MEQ PO DAILY24 [Clarithromycin], 500 MG PO BID Sepsis Evaluation @ Discharge 04/22/18 04:00 Course Sepsis Screening Results: Posi: NEGATIVE Sepsis Qualifier/Stage: NO DEFINITE RISK Vitals & review Data Vital Sign - Last 24 Hours 04/21/18 04/21/18 04/21/18 04/21/18 12:14 18:03 20:40 21:38 Temp 97.9 98.3 99.1 97.9 98.3 99.1 Pulse 82 79 86 86 Resp 18 18 B/P (MAP) 146/81 (102) 138/78 (98) 119/78 (92) Pulse Ox 99 98 96 96 O2 Delivery Room Air Room Air Room Air Room Air 04/21/18 04/22/18 04/22/18 04/22/18 22:38 00:50 04:31 08:20 Temp 98.3 98.3 97.7 98.3 98.3 97.7 Pulse 80 75 110 Resp 17 B/P (MAP) 134/83 (100) 129/68 (88) 147/72 (97) Pulse Ox 95 96 96 O2 Delivery Room Air Room Air Room Air Room Air Intake and Output 04/21/18 04/21/18 04/22/18 15:00 23:00 07:00 Intake Total 320 ml 2950 ml 1960 ml Output Total 2725 ml 3000 ml Balance 320 ml 225 ml -1040 ml Laboratory Tests Test 04/21/18 05:30 04/21/18 17:20 04/22/18 05:07 Sodium Level 142 mmol/L 138 mmol/L 142 mmol/L Potassium Level 3.0 mmol/L 2.9 mmol/L 2.7 mmol/L Chloride Level 106.0 mmol/L 104.0 mmol/L 107.0 mmol/L Carbon Dioxide Level 19.9 mmol/L 23.4 mmol/L 25.0 mmol/L Glucose Level 162 mg/dL 250 mg/dL 167 mg/dL Blood Urea Nitrogen 3 mg/dL 3 mg/dL 2 mg/dL Creatinine 0.70 mg/dL 0.80 mg/dL 0.65 mg/dL Calcium Level 7.0 mg/dL 7.6 mg/dL 7.1 mg/dL Anion Gap 19.1 13.5 12.7 Estimated GFR () 138.3 118.5 150.6 BUN/Creatinine Ratio 4.0 3.0 3.0 Magnesium Level 1.6 mg/dL 1.7 mg/dL Current Medications Medications (Trade) Dose Ordered Sig/Vitaly PRN Reason Start Time Stop Time Status Last Admin Clarithromycin (Biaxin) 500 mg BID 04/19/18 21:00 05/19/18 20:59 04/22/18 08:23 Insulin Human Regular (Humulin R) Give 30 minutes before meal ACHS 04/19/18 21:00 05/19/18 20:59 04/22/18 09:07 Metronidazole (Flagyl) 500 mg TID 04/19/18 21:00 05/19/18 20:59 04/22/18 08:23 Pantoprazole Sodium (Protonix) 40 mg BID 04/21/18 09:00 05/21/18 08:59 04/22/18 08:23 Potassium Chloride (Klor-Con 10) 40 meq OT 04/21/18 01:00 05/21/18 00:59 04/21/18 02:27 Potassium Chloride (Klor-Con 10) 40 meq STAT 04/20/18 22:00 05/20/18 21:59 04/20/18 23:11 Plan Discharge Date: Apr 22, 2018 Dicharge DX: 1. DKA, 2. H pylori duodenitis and gastritis Discharge Disposition: Stable Plan Medications per discharge list Strict ADA diet Drink plenty of water Follow up with PCP and Surgery next available appointment Discharge plans discussed with patient, he is his own decision maker and does understand and concur with plans Time spent 25 minutes Problem Qualifiers (1) DKA (diabetic ketoacidoses): Diabetes mellitus type: other specified (including LULI) Diabetes mellitus complication detail: without coma Qualified Codes: E13.10 - Other specified diabetes mellitus with ketoacidosis without coma MARISELA OMALLEY MD Apr 22, 2018 09:53
[2018-04-22] MEDS ORDERED: KLOR-CON 10 PO ONE (10:00)
[2018-04-22] MEDS ORDERED: MAGNESIUM SULFATE 50 ML IV ONE (10:00)
[2018-04-22 12:55] VITALS: BP 147/72
--- NOTE | 2018-04-22 12:55 | NUR ---
DISCHARGED Pt DISCHARGED TO HOME FROM THE UNIT, EDUCATED ON DISCHARGED PACKET Pt VERBALIZED UNDERSTANDING, IV D/C EARLIER, ASSISTED Pt IN WHEELCHAIR BY THIS NURSE3 AND FAMILY MEMBER TO THE MAIN EXIT.
--- NOTE | 2018-04-23 00:12 | PNH ---
DATE: 04/21/2018 SUBJECTIVE: He is doing well, tolerating diet well. Denies any chest pain. OBJECTIVE: VITAL SIGNS: T-max last 24 hours 98.3, pulse 82, respiratory rate is 18, blood pressure 146/81, O2 saturation 99% on room air. GENERAL: He is alert, in no acute distress at time of exam. HEENT: Pupils equal, round, reactive to light. Sclerae are anicteric. Oropharynx is clear. Mucous membranes are moist. NECK: Supple, no lymphadenopathy. CARDIOVASCULAR: At time of exam is regular rate and rhythm. LUNGS: Clear bilaterally. No wheezing. ABDOMEN: Soft. Bowel sounds are present, nontender to palpation. EXTREMITIES: No cyanosis, clubbing or significant edema. NEUROLOGIC: Grossly nonfocal. LABORATORY DATA: Sodium 142, potassium 3.0, chloride 106, CO2 is 20, BUN 3, creatinine 0.7, glucose 162, calcium 7.0, magnesium 1.6. ASSESSMENT AND PLAN: The patient is a 62-year-old man here with Helicobacter pylori duodenitis, gastritis, diabetic ketoacidosis, now resolved. 1. We will replace electrolytes as indicated. 2. Diet as tolerated. 3. Continue proton pump inhibitor and antibiotics for Helicobacter pylori. Serology was negative, but he has duodenitis, was high risk for Helicobacter pylori. We will follow up pathology results. Time spent on 04/21/2018 is 25 minutes. Jeffrey Vanegas MD DR: MIKE/gustavo JOB# [id number]
== END 2018-04-22 12:55 | disposition home or self-care (01) | DRG 638 ==
LOC: ER 11:03 → MS 13:33 → ICU 14:04 → MS 04-20 11:00
PROVIDERS: ADMIT Internal Medicine; ATTEND Internal Medicine
PROC: 0DB68ZX Excision of Stomach, Via Natural or Artificial Opening Endoscopic, Diagnostic (ICD-10-PCS; 2018-04-17)
PROC: 0DB98ZX Excision of Duodenum, Via Natural or Artificial Opening Endoscopic, Diagnostic (ICD-10-PCS; principal; 2018-04-17 10:20)
DX: E11.10 Type 2 diabetes mellitus with ketoacidosis without coma (principal); N17.9 Acute kidney failure, unspecified; K31.1 Adult hypertrophic pyloric stenosis; K81.0 Acute cholecystitis; K86.1 Other chronic pancreatitis; K29.00 Acute gastritis without bleeding; E83.42 Hypomagnesemia; K20.9 Esophagitis, unspecified; K29.80 Duodenitis without bleeding; B96.81 Helicobacter pylori [H. pylori] as the cause of diseases classified elsewhere; K26.9 Duodenal ulcer, unspecified as acute or chronic, without hemorrhage or perforation; I10 Essential (primary) hypertension; E86.0 Dehydration; Z80.8 Family history of malignant neoplasm of other organs or systems; Z82.49 Family history of ischemic heart disease and other diseases of the circulatory system; Z87.891 Personal history of nicotine dependence; Z88.0 Allergy status to penicillin; Z91.11 Patient's noncompliance with dietary regimen
CPT/HCPCS: 36415; 43239; 71045; 74176; 76705; 80048; 80053; 80307; 81000; 82803; 82948; 83690; 83735; 84484; 85007; 85025; 85027; 85610; 85730; 86677; 88305; 93005; 96361; 96374; 96375; 99291; 99292; C9113; J0780; J1815; J2270; J2405; J2765; J3010; J3475; J3480; J3490; J7030; J7050; J7070; J7120